=== PATIENT | female | born 1990 | race Caucasian/White ===

== ENCOUNTER 2017-12-10 09:16 | Emergency (ER) | payer BC, SELFPAY ==
[2017-12-10 09:20] VITALS: BP 125/74; PULSE 80; RESP 12; TEMP 37.1; O2SAT 100
--- NOTE | 2017-12-10 09:20 | ED.ABDPAIN ---
HPI - Abdominal Pain General Chief Complaint: Urogenital-Female Stated Complaint: VAGINAL BLEEDING/STOMACH PAIN Time Seen by Provider: 12/10/17 09:19 Source: patient Mode of arrival: ambulatory Limitations: no limitations History of Present Illness HPI narrative: Otherwise healthy 27-year-old female here for evaluation of 2 days of vaginal pain and vaginal bleeding. Patient is sexually active. Has 1 sexual partner. No prior history of sexually transmitted diseases. Does have some dysuria but no history of urinary tract infection. States she does not have abdominal pain but it is vaginal pain. She does have the implant in place for control. She states she has irregular menstrual cycles and her last menstrual cycle was 2 weeks ago. Related Data Home Medications Medication Instructions Recorded Confirmed etonogestrel [Nexplanon] 1 ea SUBDERMAL .ONCE 12/10/17 12/10/17 multivitamin 1 tab PO DAILY 12/10/17 12/10/17 Allergies Allergy/AdvReac Type Severity Reaction Status Date / Time No Known Drug Allergies Allergy Verified 12/10/17 10:24 Review of Systems Constitutional Denies fever(s) and Denies lethargy Cardiovascular Denies chest pain and Denies dyspnea Respiratory Denies dyspnea Gastrointestinal Gastrointestinal: Denies abdominal pain Genitourinary Denies hematuria, Denies urinary frequency, Denies genital lesions, Reports dysuria, Reports pelvic pain, Denies flank pain, Denies urinary incontinence, Denies urinary hesitancy, Denies urinary urgency, Denies vaginal dryness and Denies vaginal pruritus Musculoskeletal Denies myalgias and Denies arthralgias Integumentary/Breasts Denies lesions and Denies rash Hematologic/Lymphatic Denies easy bleeding and Denies easy bruising [facility] Medical History Healthy adult (Acute) Surgical History No pertinent past surgical history (Acute) Social History Smoking Status: Never smoker Exam Initial Vital Signs Initial Vital Signs: Vital Signs Temperature 98.8 F 12/10/17 09:20 Pulse Rate 80 12/10/17 09:20 Respiratory Rate 12 12/10/17 09:20 Blood Pressure 125/74 12/10/17 09:20 Pulse Oximetry 100 12/10/17 09:20 Const General: cooperative, healthy appearing, comfortable, well developed, well groomed and No acute distress Orientation: alert, awake and oriented x3 HENMT Head: normal to inspection and normocephalic Resp Effort & Inspection: normal respiratory effort Auscultation: clear to auscultation bilaterally Cardio Rate: regular rate GI Inspection: non-distended Palpation: soft, No firm, No rigid and No tender External Female Exam: external appearance normal, no erythema and no lesions Speculum Exam - Vagina: abnormal vaginal discharge benavides; not malodorous, no lesions, No vaginal bleeding and nontender Speculum Exam - Cervix: no lesions and nontender Bimanual Exam- Vagina & Uterus: normal vaginal palpation and No cervical tenderness Bimanual Exam- Adnexa, other: normal adnexae OB/External & Speculum: No vaginal bleeding Back/Spine/Pelvis Back: No CVA tenderness Skin Lesions: no lesions Rashes: no rashes Neuro General: alert, awake and oriented x3 Extrem General: normal to inspection and capillary refill normal Psych Appearance: grossly normal and well kempt Course Orders Ordered: ED Orders 12/10/17 09:40 Urine Chlamydia Gonorrhea PCR Stat Urine Microscopic Stat 12/10/17 11:13 FRANCK Prep Stat Wet Prep Tric BV Mary Stat MDM - Abdominal Pain Lab Data Attestation: I reviewed the patient's lab results. Lab Results 12/10/17 12/10/17 Range/Units 09:40 09:40 Urine RBC 0-1/hpf (0-5/HPF) Urine WBC 5-10/hpf H (0-5/HPF) Ur Squamous Epith Cells 5-10 /hpf H Urine Bacteria Moderate (10-30) H (None) Ur Culture Indicated? Cult not indicated Micro UA Comment Not Reportable Ur Chlamydia DNA (PCR) Not detected N gonorrhoeae DNA (PCR) Not detected Point of care testing: Point of Care Testing Test Results Negative Urine Dip Bedside Urine Glucose Negative Bedside Urine Bilirubin - Negative Bedside Urine Ketone - Negative Urine Specific [place] 1.030 Bedside Urine Occult Blood + Bedside Urine pH 5.5 Bedside Urine Protein - Negative Bedside Urine Urobilinogen - Negative Bedside Urine Nitrite - Negative Bedside Urine Leukocytes + 70 Esterase MDM Narrative Medical decision making narrative: Patient's urinalysis does have bacteria and white blood cells but also many epi cells. And her history of physical exam is not consistent with a urinary tract infection. Her GC and chlamydia is negative. FRANCK and wet prep were negative for clue cells and yeast. Her exam was benign. No adnexal tenderness. No cervical motion tenderness. Doubt PID. Patient did have some vaginal discharge however this could be normal. Unsure as the exact etiology of her symptoms. I did discuss this with her. She was discharged prior to the return of her GC and Chlamydia. I informed her that I would call if her studies were positive in would not cough her studies were negative. Her studies were eventually negative. No indication for antibiotics. We did discuss some [id number] creams that she could use for any discomfort. She was encouraged to establish care with a primary care doctor here in the area for follow-up. 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 Patient was given return precautions. She expressed understanding and agreement. Discharge Plan Departure Patient Disposition: Home Clinical Impression: Vaginal pain Discharge Date/Time: 12/10/17 14:00 Interventions: ED Discharge Assessment Last Done: 12/10/17 14:00 Instructions: DI for Pelvic Pain Activity Restrictions/Additional Instructions: I would recommend that you use the creams likely discussed. You do have a lab test that is pending and we will call for positive results. Keep all of your scheduled medical appointments. Return to the emergency department for any new or worsening symptoms Prescriptions: No Action multivitamin Tablet 1 tab PO DAILY RF: 0 etonogestrel [Nexplanon] 68 mg Implant 1 ea Subdermal .ONCE RF: 0
[2017-12-10 10:46] LABS: Bacteria Urine Moderate (10-30); RBC Urine 0-1/HPF (0-5/HPF); Squamous Epithelial Cell Urine 5-10 /HPF; WBC Urine 5-10/HPF (0-5/HPF)
[2017-12-10 10:47] LABS: Culture Indicated Urine Cult Not Indicated
--- NOTE | 2017-12-10 11:36 | PC.NURSE ---
report received from chito JERRY
[2017-12-10 13:59] LABS: Urine N gonorrhoeae NOT DETECTED
[2017-12-10 14:00] LABS: Urine Chlamydia NOT DETECTED
== END 2017-12-10 14:00 | disposition home or self-care (01) ==
PROVIDERS: Emergency Provider Emergency Medicine
DX: R10.2 Pelvic and perineal pain (principal)
CPT/HCPCS: 81003; 81015; 81025; 87210; 87220; 87491; 87591; 99283

== ENCOUNTER → 2018-02-22 19:26 | Outpatient (CLI) | payer BC, SELFPAY ==
[2018-02-22 20:11] LABS: Influenza A and B by PCR Rapid Negative (Negative)
== END ==
PROVIDERS: Visit Provider Physician Assistant
DX: R51 Headache (principal); J02.9 Acute pharyngitis, unspecified
CPT/HCPCS: 87070; 87077; 87147; 87400

== ENCOUNTER → 2018-04-09 20:13 | Outpatient (CLI) | payer BC, SELFPAY | PROVIDERS: Visit Provider Physician Assistant | DX: B37.9 Candidiasis, unspecified (principal) | CPT/HCPCS: 87086 ==

== ENCOUNTER → 2018-04-24 16:34 | Outpatient (CLI) | payer BC, SELFPAY ==
[2018-04-24 17:09] LABS: Add Manual Diff / Slide Review NO; Basophils Absolute Auto 100 /uL (0-100); Basophils Percent Auto 0.6 % (0-2); Eosinophils Absolute Auto 100 /uL (0-450); Eosinophils Percent Auto 1.8 % (2-4); Hematocrit 42.6 % (36-46); Hemoglobin 13.8 g/dL (12.0-16.0); Lymphocytes Absolute Auto 3900 /uL (1100-4500); Lymphocytes Percent Auto 46.7 % (25-40); Mean Corpuscular HGB Conc 32.3 % (30-36); Mean Corpuscular Volume 92.6 fL (80-100); Monocytes Absolute Auto 500 /uL (0-900); Monocytes Percent Auto 6.4 % (3-14); Neutrophils Absolute Auto 3800 /uL (1500-7000); Neutrophils Percent Auto 44.5 % (50-75); Platelet Count 177 X10^3/uL (150-400); White Blood Cell Count 8.4 X10^3/uL (4.5-11.0)
[2018-04-24 17:25] LABS: INR 0.9 (0.9-1.3); Prothrombin Time 10.7 SECONDS (10.1-12.7)
[2018-04-24 17:27] LABS: PTT Partial Thromboplastin Tim 30 SECONDS (26.4-36.2)
== END ==
PROVIDERS: Visit Provider Family Medicine
DX: R23.8 Other skin changes (principal)
CPT/HCPCS: 36415; 85025; 85610; 85730

== ENCOUNTER → 2018-05-13 15:21 | Outpatient (CLI) | payer BC, SELFPAY ==
[2018-05-13 18:14] LABS: HIV 1 and 2 Antibody NEGATIVE (NEGATIVE)
[2018-05-15 14:03] LABS: RPR Screen Nonreactive (Nonreactive)
[2018-05-15 16:22] LABS: Hepatitis A Antibody IgM NONREACTIVE (NONREACTIVE); Hepatitis Acute Panel Interp 0.01; Hepatitis B Core Antibody IgM NONREACTIVE (NONREACTIVE); Hepatitis B Surface Antigen NONREACTIVE (NONREACTIVE); Hepatitis C Antibody NONREACTIVE
== END ==
PROVIDERS: Visit Provider Family Medicine
DX: Z11.3 Encounter for screening for infections with a predominantly sexual mode of transmission (principal)
CPT/HCPCS: 36415; 80074; 86592; 86703

== ENCOUNTER → 2018-05-27 10:35 | Outpatient (CLI) | payer BC, SELFPAY ==
[2018-05-27 11:24] LABS: Influenza A and B by PCR Rapid Negative (Negative)
== END ==
PROVIDERS: Visit Provider Physician Assistant
DX: R68.89 Other general symptoms and signs (principal)
CPT/HCPCS: 87400